=== PATIENT | male | born 2000 ===

== ENCOUNTER 2021-12-03 22:44 | Emergency (ER) | payer OTHER ==
[~2021-12-03] VITALS: Ht 172.7 cm; Wt 105.7 kg
[~2021-12-03 22:44] MED LIST: CEFDINIR300 MG PO; DESPEC-DM TABL1 EACH PO; FLONASE16 GM NS
[2021-12-04] MEDS ORDERED: KETO10TA2 PO (02:25)
[2021-12-04] MEDS ORDERED: CENTANY30 GM TOP (02:25)
[2021-12-04] MEDS ORDERED: AMOX-CLAV 875-1 EAC1 PO (02:25)
== END 2021-12-04 03:03 ==
LOC: ER 22:44
DX: S01.82XA Laceration with foreign body of other part of head, initial encounter (principal); W05.2XXA Fall from non-moving motorized mobility scooter, initial encounter; Y93.I9 Activity, other involving external motion; Y92.413 State road as the place of occurrence of the external cause

== ENCOUNTER 2021-12-11 12:31 | Emergency (ER) | payer OTHER ==
[~2021-12-11] VITALS: Ht 203.2 cm; Wt 104.3 kg
[~2021-12-11 12:31] MED LIST changes: +AMOX-CLAV 875-1 EAC1 PO; +CENTANY30 GM TOP; +KETO10TA2 PO
[2021-12-11] MEDS ORDERED: TOPICAINE 5113 GM TOP (13:09)
== END 2021-12-11 14:25 | disposition home or self-care (01) ==
LOC: ER 12:31
DX: Z48.02 Encounter for removal of sutures (principal)

== ENCOUNTER 2021-12-24 19:24 | Emergency (ER) | payer OTHER ==
[~2021-12-24] VITALS: Ht 172.7 cm; Wt 99.8 kg
[~2021-12-24 19:24] MED LIST changes: +TOPICAINE 5113 GM TOP
== END 2021-12-24 21:41 | disposition home or self-care (01) ==
LOC: ER 19:24
DX: Z48.02 Encounter for removal of sutures (principal)